=== PATIENT | female | born 1995 | race Caucasian/White ===

== ENCOUNTER 2022-07-04 02:15 | Emergency (ER) | payer SELFPAY ==
[~2022-07-04] VITALS: Ht 185.4 cm; Wt 113.6 kg
[2022-07-04 02:21] VITALS: TEMP 98.1
[2022-07-04 02:44] LABS: BASO # 0.1 K/mm3 (0.0-0.2); BASO % 0.9 % (0.0-2.0); EOS # 0.1 K/mm3 (0.0-0.7); EOS % 1.1 % (0.0-4.0); GRAN # 7.4 K/mm3 (1.4-6.5); GRAN % 66.2 % (42.2-75.2); HEMATOCRIT 39.5 % (37.0-47.0); HEMOGLOBIN 13.2 g/dl (12.5-16.0); LYMPH # 2.8 K/mm3 (1.2-3.4); LYMPH % 24.8 % (20.0-51.0); MEAN CELL VOLUME 89 fl (80.0-100.0); MEAN CORPUSCULAR HEMOGLOBIN 30 pg (27-31); MEAN CORPUSCULAR HGB CONC 33 g/dl (33.0-37.0); MEAN PLATELET VOLUME 8.5 fl (7.4-10.4); MONO # 0.7 K/mm3 (0.1-0.6); MONO % 5.9 % (1.7-9.3); PLATELET COUNT 499 K/mm3 (130-400); RED BLOOD COUNT 4.45 M/mm3 (4.10-5.30); REDCELL DISTRIBUTION WIDTH-CV 12.5 % (11.5-14.5)
[2022-07-04 02:57] LABS: ALCOHOL(ethanol),MEDICAL < 10 mg/dL (0-10); ANION GAP 11 mmol/L (7-16); BLOOD UREA NITROGEN 8 mg/dL (7-19); CALCIUM 10.3 mg/dL (8.4-10.2); CARBON DIOXIDE 23 mmol/L (22-29); CHLORIDE 106 mmol/L (98-107); CREATININE, serum 0.77 mg/dL (0.57-1.11); GLUCOSE 91 mg/dL (70-99); POTASSIUM 4.7 mmol/L (3.5-4.5); SODIUM 140 mmol/L (136-145)
[2022-07-04 04:10] VITALS: BP 120/73; PULSE 87
== END 2022-07-04 04:11 | disposition home or self-care (01) ==
LOC: COL.ER 02:15
PROVIDERS: Emergency Medicine
DX: S06.9X9A Unspecified intracranial injury with loss of consciousness of unspecified duration, initial encounter (principal); S00.83XA Contusion of other part of head, initial encounter; S10.93XA Contusion of unspecified part of neck, initial encounter; R11.0 Nausea; Z28.310 Unvaccinated for COVID-19; Y04.8XXA Assault by other bodily force, initial encounter
CPT/HCPCS: J2270; J2405; Q9967

== ENCOUNTER 2023-10-05 18:24 | Emergency (ER) | payer OTHER ==
[~2023-10-05] VITALS: Ht 185.4 cm; Wt 102.3 kg
[2023-10-05 18:29] VITALS: TEMP 98.6
[2023-10-05] MEDS ORDERED: KEPPRA 500MG500 MG PO (19:22)
[2023-10-05 19:37] LABS: BASO # 0.1 K/mm3 (0.0-0.2); BASO % 0.8 % (0.0-2.0); EOS # 0.2 K/mm3 (0.0-0.7); EOS % 1.7 % (0.0-4.0); GRAN # 5.8 K/mm3 (1.4-6.5); GRAN % 50.6 % (42.2-75.2); HEMATOCRIT 45.7 % (37.0-47.0); HEMOGLOBIN 15.2 g/dl (12.5-16.0); LYMPH # 4.4 K/mm3 (1.2-3.4); LYMPH % 38.8 % (20.0-51.0); MEAN CELL VOLUME 89 fl (80.0-100.0); MEAN CORPUSCULAR HEMOGLOBIN 30 pg (27-31); MEAN CORPUSCULAR HGB CONC 33 g/dl (33.0-37.0); MEAN PLATELET VOLUME 10.2 fl (7.4-10.4); MONO # 0.9 K/mm3 (0.1-0.6); MONO % 7.7 % (1.7-9.3); PLATELET COUNT 308 K/mm3 (130-400); RED BLOOD COUNT 5.12 M/mm3 (4.10-5.30); REDCELL DISTRIBUTION WIDTH-CV 12.3 % (11.5-14.5)
[2023-10-05 19:56] LABS: ALANINE AMINOTRANSFERASE 18 U/L (0-55); ALBUMIN 4.2 g/dL (3.5-5.0); ALKALINE PHOSPHATASE 65 U/L (40-150); ANION GAP 13 mmol/L (7-16); AST,SGOT 29 U/L (5-34); BILIRUBIN,TOTAL 0.2 mg/dL (0.2-1.2); BLOOD UREA NITROGEN 11 mg/dL (7-19); CALCIUM 10.1 mg/dL (8.4-10.2); CHLORIDE 105 mEq/L (98-107); CREATININE, serum 0.79 mg/dL (0.57-1.11); GLUCOSE 88 mg/dL (70-99); LIPASE 9 U/L (8-78); POTASSIUM 5.4 mEq/L (3.5-4.5); SODIUM 140 mEq/L (136-145); TOTAL PROTEIN 8.1 g/dl (6.2-8.1)
[2023-10-05 20:02] LABS: TROPONIN-I < 0.010 ng/mL (0.00-0.033)
[2023-10-05] MEDS ORDERED: Ketorolac 30 MG/ML VIAL IV ONE (20:15)
[2023-10-05 21:00] VITALS: BP 129/76; PULSE 62
== END 2023-10-05 21:00 | disposition home or self-care (01) ==
LOC: COL.ER 18:24
PROVIDERS: Nurse Practitioner Primary Care
DX: M94.0 Chondrocostal junction syndrome [Tietze] (principal); F17.210 Nicotine dependence, cigarettes, uncomplicated
CPT/HCPCS: J1885